=== PATIENT | male | born 1940 | race Caucasian/White ===

== ENCOUNTER 2020-04-29 20:49 | Inpatient (IN) | payer MEDICARE, MEDICAID ==
[~2020-04-29] VITALS: Ht 182.9 cm; Wt 96.9 kg
[2020-04-29 21:07] VITALS: BP 140/75
[2020-04-29] MEDS ORDERED: FUROSEMIDE 20 M20 MG PO (21:28)
[2020-04-29] MEDS ORDERED: VESICARE 5 MG TA5 M1 PO (21:29)
[2020-04-29] MEDS ORDERED: KLOR-CON 10 ER10 MEQ PO (21:29)
[2020-04-29] MEDS ORDERED: CALCIUM500 MG PO (21:33)
[2020-04-29] MEDS ORDERED: CALCIUM 600 +1 EA14 PO (21:35)
[2020-04-29] MEDS ORDERED: TYLENOL325 M1 PO (21:36)
[2020-04-29] MEDS ORDERED: NASAL SPRAY30 M1 NASAL (21:38)
[2020-04-29] MEDS ORDERED: MILK OF MA400 MG/5 M PO (21:38)
[2020-04-29] MEDS ORDERED: ANTI-DIARRHEAL2 MG PO (21:39)
[2020-04-29] MEDS ORDERED: METFORMIN HCL500 M3 PO (21:40)
[2020-04-29] MEDS ORDERED: SENNA PLUS TAB1 EACH PO (21:40)
[2020-04-29] MEDS ORDERED: METFORMIN PO (21:41)
[2020-04-29] MEDS ORDERED: VITAMIN C500 M1 PO (21:43)
[2020-04-29] MEDS ORDERED: SUPER THERAVIT1 EACH PO (21:43)
[2020-04-29] MEDS ORDERED: TRIPLE ANTIBIOT28 G2 TOP (21:43)
[2020-04-29] MEDS ORDERED: ZINC50 MG PO (21:44)
[2020-04-29] MEDS ORDERED: FLORASTOR250 MG PO (21:45)
[2020-04-29] MEDS ORDERED: KEFLEX500 M1 PO (21:45)
[2020-04-29 21:49] LABS: HEMATOCRIT 35.1 % (42.0-52.0); MCH 27.8 pg (26.0-34.0); MCHC 34.2 g/dL (28.0-37.0); MCV 81.4 fL (80.0-100.0); NUCLEATED RBCS 0 /100WBC; PLATELET COUNT* 177 thou/uL (150-400); RBC 4.31 mil/uL (4.50-6.00); RDW-CV 14.1 % (10.5-14.5); WBC 12.8 thou/uL (4.0-11.0)
[2020-04-29 21:58] LABS: CALCIUM 9.1 mg/dL (8.5-10.1); CREATININE 1.2 mg/dL (0.6-1.3); POTASSIUM 3.5 mmol/L (3.5-5.1)
[2020-04-29 22:08] LABS: ALBUMIN 2.7 g/dL (3.4-5.0); TOTAL BILIRUBIN 0.8 mg/dL (<0.1-1.0); TOTAL PROTEIN 7.1 g/dL (6.4-8.2)
[2020-04-29 22:18] LABS: PROTIME 10.1 Seconds (9.20-11.50)
[2020-04-29 22:29] LABS: ABSOLUTE LYMPHOCYTES 0.5 thou/uL (0.8-5.3); ABSOLUTE NEUTROPHILS 11.3 thou/uL (1.6-8.1); PLATELET ESTIMATE ADEQUATE
[2020-04-29 23:55] VITALS: BP 149/80
[2020-04-30] VITALS (7 sets, daily range): BP systolic 95–162; BP diastolic 42–78
[2020-04-30 02:25] LABS: BE -0.3 mmol/L (-2 to +3); PCO2 33.4 mmHg (35.0-45.0); pH 7.456 (7.340-7.450)
[2020-04-30 02:29] LABS: PO2 59.2 mmHg (75.0-100.0)
--- NOTE | 2020-04-30 18:27 | EKG ---
[place] [address] ELECTROCARDIOGRAM REPORT Name: CHASITYMINOR Hernadez Room: [address] ADM IN ..#: [id number] Admission: 04/29/20 Attend Phys: Reinier Abraham, Discharge: Date of : 36 Date of Service: 04/29/202056 Report #: [id number] THIS REPORT FOR: //name// [facility] ED Test Date: 2020-04-29 Test Time: 20:57:29 Pat Name: MINOR GASPAR Department: Room: [facility] Gender: M Designated Broker: PETE : 1940 Requested By: Shraddha Nesbitt Order Number: [id number] MD: Camilo Todd Measurements Intervals [place] Rate: 106 P: 39 NH: 147 QRS: -95 QRSD: 118 T: -2 QT: 352 QTc: 468 Interpretive Statements Sinus tachycardia Incomplete right bundle branch block No previous ECG available for comparison Electronically Signed On 04-30-2020 18:27:06 CDT by Camilo Todd [email or web address] <ELECTRONICALLY SIGNED> By: Camilo Todd MD, FACC 04/30/201826 56 56 Camilo Todd MD, [facility] /EPI
[2020-04-30 20:32] LABS: HEMATOCRIT 31.8 % (42.0-52.0); MCH 28.3 pg (26.0-34.0); MCHC 34.6 g/dL (28.0-37.0); MCV 81.9 fL (80.0-100.0); NUCLEATED RBCS 0 /100WBC; PLATELET COUNT* 148 thou/uL (150-400); RBC 3.88 mil/uL (4.50-6.00); RDW-CV 14.2 % (10.5-14.5); WBC 7.4 thou/uL (4.0-11.0)
[2020-04-30 20:39] LABS: CALCIUM 8.1 mg/dL (8.5-10.1); CREATININE 0.9 mg/dL (0.6-1.3); MAGNESIUM 2.3 mg/dL (1.8-2.4); POTASSIUM 3.5 mmol/L (3.5-5.1)
[2020-04-30 21:05] LABS: ABSOLUTE LYMPHOCYTES 0.1 thou/uL (0.8-5.3); ABSOLUTE MONOCYTES 0.1 thou/uL (0.0-1.2); ABSOLUTE NEUTROPHILS 7.1 thou/uL (1.6-8.1); PLATELET ESTIMATE ADEQUATE
[2020-05-01 00:10] VITALS: BP 96/46
[2020-05-01 05:21] LABS: ABSOLUTE LYMPHOCYTES 0.4 thou/uL (0.8-5.3); ABSOLUTE MONOCYTES 0.4 thou/uL (0.0-1.2); ABSOLUTE NEUTROPHILS 6.5 thou/uL (1.6-8.1); BASOPHILS 0.2 %; HEMATOCRIT 33.1 % (42.0-52.0); HEMOGLOBIN 11.2 gm/dL (14.0-18.0); LYMPHOCYTES 5.8 %; MCH 27.7 pg (26.0-34.0); MCHC 33.7 g/dL (28.0-37.0); MCV 82.4 fL (80.0-100.0); MONOCYTES 4.9 %; MPV 9.8 fl. (7.2-11.1); NUCLEATED RBCS 0 /100WBC; PLATELET COUNT* 154 thou/uL (150-400); POLYS 89.1 %; RBC 4.02 mil/uL (4.50-6.00); RDW-CV 14.3 % (10.5-14.5); WBC 7.3 thou/uL (4.0-11.0)
[2020-05-01 05:27] LABS: CALCIUM 7.9 mg/dL (8.5-10.1); MAGNESIUM 2.4 mg/dL (1.8-2.4); POTASSIUM 3.7 mmol/L (3.5-5.1)
[2020-05-01 08:00] VITALS: BP 116/53
[2020-05-01 13:31] VITALS: BP 124/61
[2020-05-01 17:27] VITALS: BP 126/66
[2020-05-01 20:00] VITALS: BP 110/63
[2020-05-02] VITALS: BP 110/63; BP 127/72
[2020-05-02 04:17] LABS: ABSOLUTE BASOPHILS 0.1 thou/uL (0.0-0.2); ABSOLUTE LYMPHOCYTES 0.3 thou/uL (0.8-5.3); ABSOLUTE MONOCYTES 0.6 thou/uL (0.0-1.2); ABSOLUTE NEUTROPHILS 9.3 thou/uL (1.6-8.1); BASOPHILS 0.7 %; HEMATOCRIT 32.7 % (42.0-52.0); HEMOGLOBIN 10.9 gm/dL (14.0-18.0); LYMPHOCYTES 3.1 %; MCH 27.7 pg (26.0-34.0); MCHC 33.5 g/dL (28.0-37.0); MCV 82.8 fL (80.0-100.0); MONOCYTES 5.8 %; MPV 9.6 fl. (7.2-11.1); NUCLEATED RBCS 0 /100WBC; PLATELET COUNT* 185 thou/uL (150-400); POLYS 90.4 %; RBC 3.94 mil/uL (4.50-6.00); RDW-CV 14.1 % (10.5-14.5); WBC 10.3 thou/uL (4.0-11.0)
[2020-05-02 04:23] VITALS: BP 119/65
[2020-05-02 04:54] LABS: ALBUMIN 2.1 g/dL (3.4-5.0); CALCIUM 7.7 mg/dL (8.5-10.1); CREATININE 0.9 mg/dL (0.6-1.3); MAGNESIUM 2.4 mg/dL (1.8-2.4); POTASSIUM 4.1 mmol/L (3.5-5.1); TOTAL BILIRUBIN 0.4 mg/dL (<0.1-1.0); TOTAL PROTEIN 5.8 g/dL (6.4-8.2)
[2020-05-02 08:00] VITALS: BP 134/62
[2020-05-02 09:15] LABS: PCO2 28.2 mmHg (35.0-45.0)
[2020-05-02 09:22] LABS: PO2 49.5 mmHg (75.0-100.0)
[2020-05-02 12:49] VITALS: BP 123/61
[2020-05-02 17:03] VITALS: BP 126/67
[2020-05-02 20:00] VITALS: BP 138/68
[2020-05-03 00:50] VITALS: BP 129/70
[2020-05-03 04:57] VITALS: BP 120/64
[2020-05-03 05:32] LABS: ABSOLUTE BASOPHILS 0.2 thou/uL (0.0-0.2); ABSOLUTE LYMPHOCYTES 0.5 thou/uL (0.8-5.3); ABSOLUTE MONOCYTES 0.7 thou/uL (0.0-1.2); ABSOLUTE NEUTROPHILS 10.2 thou/uL (1.6-8.1); BASOPHILS 1.7 %; HEMATOCRIT 32.9 % (42.0-52.0); HEMOGLOBIN 11.1 gm/dL (14.0-18.0); LYMPHOCYTES 4.4 %; MCH 27.7 pg (26.0-34.0); MCHC 33.7 g/dL (28.0-37.0); MONOCYTES 5.8 %; MPV 9.1 fl. (7.2-11.1); NUCLEATED RBCS 0 /100WBC; PLATELET COUNT* 220 thou/uL (150-400); POLYS 88.1 %; RBC 4.02 mil/uL (4.50-6.00); RDW-CV 14.2 % (10.5-14.5); WBC 11.6 thou/uL (4.0-11.0)
[2020-05-03 05:46] LABS: ALBUMIN 2.2 g/dL (3.4-5.0); CALCIUM 7.4 mg/dL (8.5-10.1); CREATININE 0.8 mg/dL (0.6-1.3); POTASSIUM 3.7 mmol/L (3.5-5.1); TOTAL BILIRUBIN 0.5 mg/dL (<0.1-1.0); TOTAL PROTEIN 5.7 g/dL (6.4-8.2)
[2020-05-03 08:10] VITALS: BP 118/64
--- NOTE | 2020-05-03 12:19 | CON ---
[address] [address] CONSULTATION Name: MINOR GASPAR Satya Room: [place] [address] ADM IN M.R.#: [id number] Admission: 04/29/20 Attend Phys: Reinier Abraham MD Discharge: Date of : 36 Report #: [id number] THIS REPORT FOR: //name// cc: Titi Vogel MD, Jason C. MD ~ THIS REPORT FOR: //name// DATE OF SERVICE: 04/30/2020 CONSULT REQUESTED BY: Reinier Abraham MD INDICATION FOR CONSULTATION: COVID-19 and sepsis. HISTORY OF PRESENT ILLNESS: An 79-year-old gentleman with past medical history as mentioned below. The patient is reported to be the resident of a half-way facility. He was admitted recently to another facility after being diagnosed with COVID-19 on 04/23/2020. The patient at that time was reported to also be treated for urinary tract infection, subsequently was discharged from the other facility. The patient is reported to have progressively become more and more short of breath, also requiring increasing amount of oxygen, which is the reason that he has been transferred here. The patient is reported to have had significant excoriation and fungal infection in the groin as well. The patient at the time of my examination was fairly lethargic; however, I was able to arouse him and he was fully awake when aroused. He did not answer orientation questions. The patient was last reported to be saturating in the low 90s on 5 liters oxygen via nasal cannula. The patient is only on clear liquids at this time. The patient provides a limited history. His review of systems for 12 points is negative except as mentioned above. He does have some swelling of lower extremities. PAST MEDICAL HISTORY: Recent urinary tract infection as above, type 2 diabetes, major depressive disorder, atrial fibrillation. I do not see any anticoagulant on his home medication list, osteoporosis. SOCIAL HISTORY: There is no known history of smoking, ethanol abuse or drug abuse. ALLERGIES: No known drug allergies. FAMILY HISTORY: No known pertinent family history. PHYSICAL EXAMINATION: GENERAL: He is drowsy, he is fully arousable. He did not answer orientation questions. VITAL SIGNS: Has a pulse of 61 and a blood pressure of 95/56. Previously was saturating up to 98% on 5 liters nasal cannula, last [place] [address] CONSULTATION Name: MINOR GASPAR Room: [address] IN [facility]#: [id number] Admission: 04/29/20 Attend Phys: Reinier Abraham MD Discharge: Date of : 36 Report #: [id number] patient's nurse, Miguelangel, at 91-92% on 5 liters nasal cannula, respiratory rate is mildly elevated to 20. He is afebrile with a temperature of 36.6. HEENT: Head is normocephalic and atraumatic. NECK: Does not show raised JVP, asymmetry, mass or lymph nodes. CHEST: Symmetrical expansion on inspection and palpation. On auscultation, breath sounds are bilaterally equal, mildly decreased. No added sounds. HEART: Regular. There is no murmur. ABDOMEN: Soft and nontender. EXTREMITIES: Lower extremities show 1+ edema. There is no calf tenderness. SKIN: Dry and intact. NEUROLOGICAL: He does move all extremities bilaterally equally and spontaneously with no focal deficit identified. The patient's RN reported the patient has significant excoriation in his groin. I did not examine his groin myself. LABORATORY DATA: The patient's chest x-ray is reviewed and shows bilateral infiltrates. The patient's CBC as well as chemistries done last night, which shows significant bandemia with bands of 16% in [employer] reviewed. Coagulation studies also in [employer] reviewed, mild elevation in LFTs noted, elevated blood glucose is noted. His COVID-19 antigen is positive. The patient is reported to be incontinent of bowel and urine. There is no urine collected so far. ASSESSMENT AND PLAN: 1. Acute respiratory failure. We will continue to titrate oxygen. He will benefit from a BiPAP while asleep. The patient is currently not in a negative pressure room. We will see if we can get him transferred to a negative pressure room so that BiPAP could be initiated while asleep and I recommended the same. 2. COVID-19, I agree with remdesivir as well as Decadron as currently prescribed. The patient's LFTs were elevated yesterday. I recommend following LFTs closely while he is on remdesivir. 3. Pulmonary infiltrates/sepsis. The patient has 16% bands. He has recently been to another hospital, admitted. He is also a resident of a half-way facility. Therefore, I would like to cover MRSA. I ordered repeat labs now and then we will decide between linezolid and vancomycin. He remains on Zosyn as well as Levaquin as well and I agree with continuing the same. More cultures and serologies are ordered. 4. High aspiration risk. Recommend speech consultation. Note that he is currently only on clear liquids. The patient's RN reported that he is able to swallow. 5. Edema in lower extremities. We will obtain a D-dimer. If D-dimer is elevated, we will do venous Dopplers. We will then also assess as to whether he needs a CTA chest and echo. His fluid balance would be delicate, we want to keep him well hydrated as he has sepsis on the other hand. He does appear to be total body fluid overloaded. We will need to watch this closely. 6. Gastrointestinal prophylaxis, [place] [address] CONSULTATION Name: MINOR GASPAR Room: [address] IN [facility]#: [id number] Admission: 04/29/20 Attend Phys: Reinier Abraham MD Discharge: Date of : 36 Report #: [id number] 7. Deep vein thrombosis prophylaxis, he is on Lovenox. 8. The patient is critically ill at this time. Total time spent providing critical care to this patient today exceeds 40 minutes. <ELECTRONICALLY SIGNED> By: Joel Mccauley MD 05/03/20 1219 [id number] Mccauley MD /nt
[2020-05-03 12:53] VITALS: BP 121/65
[2020-05-03 16:17] VITALS: BP 124/66
[2020-05-03 20:00] VITALS: BP 121/60
[2020-05-04] VITALS: BP 141/72
[2020-05-04 04:00] VITALS: BP 133/66
[2020-05-04 05:39] LABS: ABSOLUTE LYMPHOCYTES 0.6 thou/uL (0.8-5.3); ABSOLUTE MONOCYTES 0.7 thou/uL (0.0-1.2); ABSOLUTE NEUTROPHILS 12.7 thou/uL (1.6-8.1); BASOPHILS 0.3 %; EOSINOPHILS 0.3 %; HEMATOCRIT 34.7 % (42.0-52.0); HEMOGLOBIN 11.6 gm/dL (14.0-18.0); LYMPHOCYTES 4.5 %; MCH 27.6 pg (26.0-34.0); MCHC 33.4 g/dL (28.0-37.0); MCV 82.6 fL (80.0-100.0); MONOCYTES 4.6 %; MPV 9.2 fl. (7.2-11.1); NUCLEATED RBCS 0 /100WBC; PLATELET COUNT* 260 thou/uL (150-400); POLYS 90.3 %; RDW-CV 14.5 % (10.5-14.5)
[2020-05-04 05:58] LABS: ALBUMIN 2.2 g/dL (3.4-5.0); CALCIUM 7.8 mg/dL (8.5-10.1); CREATININE 0.8 mg/dL (0.6-1.3); MAGNESIUM 2.2 mg/dL (1.8-2.4); POTASSIUM 3.5 mmol/L (3.5-5.1); TOTAL BILIRUBIN 0.6 mg/dL (<0.1-1.0); TOTAL PROTEIN 5.8 g/dL (6.4-8.2)
[2020-05-04 06:06] LABS: PREALBUMIN 13.5 mg/dL (18.0-35.7)
[2020-05-04 08:20] VITALS: BP 144/58
[2020-05-04 12:00] VITALS: BP 140/74
[2020-05-04 18:07] VITALS: BP 132/76
[2020-05-04 20:00] VITALS: BP 146/66; BP 97/42
[2020-05-05 00:53] VITALS: BP 128/59
[2020-05-05 04:42] VITALS: BP 124/56
[2020-05-05 10:00] VITALS: BP 132/62
[2020-05-05] MEDS ORDERED: DOXYCYCLINE 10100 MG PO (11:59)
[2020-05-05] MEDS ORDERED: DEXAMETHASONE1 MG PO (11:59)
[2020-05-05] MEDS ORDERED: PROTONIX40 M4 PO (11:59)
[2020-05-05 14:02] VITALS: BP 119/61
[2020-05-05 17:03] VITALS: BP 119/62
== END 2020-05-05 18:15 | DRG 871 ==
LOC: M.ERS 20:49 → M.2W 22:57 → M.TBA-ER 22:57 → M.2W 04-30 00:47
PROVIDERS: Emergency Medicine; Internal Medicine Critical Care Medicine; ADMIT Internal Medicine; ATTEND Internal Medicine
PROC: XW033E5 Introduction of Remdesivir Anti-infective into Peripheral Vein, Percutaneous Approach, New Technology Group 5 (ICD-10-PCS; principal; 2020-04-30)
PROC: XW033E5 Introduction of Remdesivir Anti-infective into Peripheral Vein, Percutaneous Approach, New Technology Group 5 (ICD-10-PCS; 2020-05-01)
PROC: 5A09357 Assistance with Respiratory Ventilation, Less than 24 Consecutive Hours, Continuous Positive Airway Pressure (ICD-10-PCS; 2020-05-01)
PROC: XW033E5 Introduction of Remdesivir Anti-infective into Peripheral Vein, Percutaneous Approach, New Technology Group 5 (ICD-10-PCS; 2020-05-02)
PROC: 5A09357 Assistance with Respiratory Ventilation, Less than 24 Consecutive Hours, Continuous Positive Airway Pressure (ICD-10-PCS; 2020-05-02)
PROC: 5A09357 Assistance with Respiratory Ventilation, Less than 24 Consecutive Hours, Continuous Positive Airway Pressure (ICD-10-PCS; 2020-05-03)
PROC: XW033E5 Introduction of Remdesivir Anti-infective into Peripheral Vein, Percutaneous Approach, New Technology Group 5 (ICD-10-PCS; 2020-05-03)
PROC: XW033E5 Introduction of Remdesivir Anti-infective into Peripheral Vein, Percutaneous Approach, New Technology Group 5 (ICD-10-PCS; 2020-05-04)
PROC: 5A09357 Assistance with Respiratory Ventilation, Less than 24 Consecutive Hours, Continuous Positive Airway Pressure (ICD-10-PCS; 2020-05-04)
DX: A41.89 Other specified sepsis (principal); U07.1 COVID-19; J12.89 Other viral pneumonia; J96.01 Acute respiratory failure with hypoxia; F32.9 Major depressive disorder, single episode, unspecified; M81.0 Age-related osteoporosis without current pathological fracture; E11.9 Type 2 diabetes mellitus without complications; R60.9 Edema, unspecified; I48.91 Unspecified atrial fibrillation; F41.9 Anxiety disorder, unspecified; Z79.84 Long term (current) use of oral hypoglycemic drugs; Z79.899 Other long term (current) drug therapy; Z23 Encounter for immunization